=== PATIENT | male | born 1980 | race Caucasian/White ===

== ENCOUNTER 2017-01-12 08:06 | Inpatient (IN) | payer OTHER ==
[~2017-01-12] VITALS: Ht 182.9 cm; Wt 70.3 kg
[2017-01-12] VITALS (13 sets, daily range): BP systolic 101–128; BP diastolic 54–79; Ht 182.9 cm; Wt 70.3 kg
[~2017-01-12 08:06] MED LIST: ACETA PO; ALLERGY10 MG PO; AMLODIPINE10 MG PO; ATI1 NG; BENADRYL25 M1 PO; BLOOD PRESSURE MED PO; BUPROPION HCL150 M2 PO; DOCUSATE100 MG PO; ED BACLOFEN10 MG PO; FLUOXETINE HCL PO; FOL1 PO; GLIPIZIDE5 MG; GLIPIZIDE5 MG PO; GLU5 PO; HUMULIN R100 U/1 M1 SC; HYD25 PO; LIPITOR10 MG PO; MELOXICAM7.5 MG PO; NEURONTIN300 PO; NOR10T PO; PANTOPRAZOLE40 MG PO; RANITIDINE150 MG PO; SUMATRIPTAN SUC25 MG PO; WEL100 PO; ZES10 PO; ZOC10 PO; ZOFRAN4 M1 PO
[2017-01-12 08:29] LABS: BASOPHIL % 0.7 % (0-2); PLATELET COUNT 204 x10^3mcL (130-400); RED CELL DISTRIBUTION WIDTH 14.3 % (11.5-14.5)
[2017-01-12 08:58] LABS: CALCIUM 8.7 mg/dL (8.5-10.1); CARBON DIOXIDE 25.5 mmol/L (21-32); CHLORIDE SERUM 103 mmol/L (98-107); CREATININE SERUM 1.1 mg/dL (0.7-1.3); GFR1 > 60 mL/min; GLUCOSE SERUM 174 mg/dL (74-106); POTASSIUM SERUM 3.5 mmol/L (3.5-5.1); SODIUM SERUM 138 mmol/L (136-145)
[2017-01-12 09:03] LABS: ALBUMIN 4.1 g/dL (3.4-5.0); ALKALINE PHOSPHATASE 49 U/L (46-116); ALT/SGPT 40 U/L (16-63); AST/SGOT 26 U/L (15-37); BILIRUBIN TOTAL 0.82 mg/dL (0.20-1.00); TOTAL PROTEIN, SERUM 7.2 g/dL (6.4-8.2)
[2017-01-12 09:04] LABS: CHOLESTEROL 102 mg/dL (<200)
[2017-01-12 09:18] LABS: AMPHETAMINE QUAL UR NONE DETECTED (NEG <=1000)
[2017-01-12] MEDS ORDERED: ROBAXIN500 MG (09:44)
[2017-01-12] MEDS ORDERED: NORTRIPTYLINE H10 MG PO (09:44)
[2017-01-12] MEDS ORDERED: ACT15 (09:45)
[2017-01-12 14:39] LABS: MAGNESIUM 1.9 mg/dL (1.8-2.4); PHOSPHOROUS 5.7 mg/dL (2.5-4.9)
[2017-01-12 14:41] LABS: CHOLESTEROL/HDL RATIO 2.1
[2017-01-12 14:52] LABS: T3 TOTAL 1.14 ng/mL
[2017-01-12 15:46] LABS: FREE T4 1.55 ng/dL (0.76-1.46); FREE THYROXINE INDEX 4.4 ug/dL (1.4-4.5); T4(THYROXINE) 10.7 ug/dL (4.7-13.3)
[2017-01-12 16:22] LABS: microscopic required? YES; urine erythrocyte 1+ (NEGATIVE)
[2017-01-13] VITALS (11 sets, daily range): BP systolic 100–128; BP diastolic 48–87
[2017-01-13 05:36] LABS: BASOPHIL % 0.8 % (0-2); PLATELET COUNT 178 x10^3mcL (130-400); RED CELL DISTRIBUTION WIDTH 14.1 % (11.5-14.5)
[2017-01-13 05:59] LABS: CALCIUM 8.6 mg/dL (8.5-10.1); CARBON DIOXIDE 24.4 mmol/L (21-32); CHLORIDE SERUM 109 mmol/L (98-107); CREATININE SERUM 0.8 mg/dL (0.7-1.3); GFR1 > 60 mL/min; GLUCOSE SERUM 131 mg/dL (74-106); MAGNESIUM 1.8 mg/dL (1.8-2.4); PHOSPHOROUS 3.9 mg/dL (2.5-4.9); POTASSIUM SERUM 4.4 mmol/L (3.5-5.1); SODIUM SERUM 143 mmol/L (136-145)
== END 2017-01-13 19:35 | disposition short-term general hospital (02) | DRG 133 ==
LOC: ED 08:06 → IC 10:33
PROVIDERS: Specialist; ADMIT Family Medicine
PROC: 5A1945Z Respiratory Ventilation, 24-96 Consecutive Hours (ICD-10-PCS; principal; 2017-01-12)
PROC: 0BH17EZ Insertion of Endotracheal Airway into Trachea, Via Natural or Artificial Opening (ICD-10-PCS; 2017-01-12)
DX: J96.00 Acute respiratory failure, unspecified whether with hypoxia or hypercapnia (principal); N17.0 Acute kidney failure with tubular necrosis; G92 Toxic encephalopathy; E10.51 Type 1 diabetes mellitus with diabetic peripheral angiopathy without gangrene; K72.90 Hepatic failure, unspecified without coma; E83.39 Other disorders of phosphorus metabolism; T42.8X2A Poisoning by antiparkinsonism drugs and other central muscle-tone depressants, intentional self-harm, initial encounter; F32.9 Major depressive disorder, single episode, unspecified; Z79.4 Long term (current) use of insulin; Z68.21 Body mass index [BMI] 21.0-21.9, adult; Z83.3 Family history of diabetes mellitus
CPT/HCPCS: 31500; 36600; 82962; 83880; 84439; 94150; A4628; G0480; J1644; J1885; J2704; J3490; J7030; J7620; Q0092

== ENCOUNTER 2017-10-15 15:22 | Emergency (ER) | payer OTHER ==
[~2017-10-15] VITALS: Ht 177.8 cm; Wt 68.0 kg
[~2017-10-15 15:22] MED LIST changes: +ACT15; +NORTRIPTYLINE H10 MG PO; +ROBAXIN500 MG
[2017-10-15 15:29] VITALS: Ht 177.8 cm; Wt 68.0 kg
[2017-10-15 16:36] LABS: BASOPHIL % 1.2 % (0-2); PLATELET COUNT 210 x10^3mcL (130-400); RED CELL DISTRIBUTION WIDTH 13.9 % (11.5-14.5)
[2017-10-15 16:44] LABS: AMPHETAMINE QUAL UR NONE DETECTED (NEG <=1000)
[2017-10-15 17:04] LABS: CALCIUM 9.4 mg/dL (8.5-10.1); CARBON DIOXIDE 22.7 mmol/L (21-32); CHLORIDE SERUM 107 mmol/L (98-107); CREATININE SERUM 1.2 mg/dL (0.7-1.3); GFR1 > 60 mL/min; GLUCOSE SERUM 141 mg/dL (74-106); POTASSIUM SERUM 4.2 mmol/L (3.5-5.1); SODIUM SERUM 144 mmol/L (136-145)
[2017-10-15 17:21] LABS: ALBUMIN 4.7 g/dL (3.4-5.0); ALKALINE PHOSPHATASE 66 U/L (46-116); ALT/SGPT 40 U/L (16-63); AST/SGOT 25 U/L (15-37); BILIRUBIN TOTAL 0.8 mg/dL (0.20-1.00); TOTAL PROTEIN, SERUM 7.6 g/dL (6.4-8.2)
[2017-10-15 17:23] LABS: CHOLESTEROL 102 mg/dL (<200)
[2017-10-15 21:40] VITALS: BP 136/73
== END 2017-10-15 21:30 | disposition short-term general hospital (02) ==
LOC: ED 15:22
PROVIDERS: Specialist
DX: G93.41 Metabolic encephalopathy (principal); E86.0 Dehydration; E11.9 Type 2 diabetes mellitus without complications; Z88.0 Allergy status to penicillin; Z88.2 Allergy status to sulfonamides; Z88.1 Allergy status to other antibiotic agents; Z88.8 Allergy status to other drugs, medicaments and biological substances
CPT/HCPCS: 36600; 83880; G0480; Q0092